=== PATIENT | female | born 1975 | race African-American/Black ===

== ENCOUNTER 2018-01-21 14:01 | Outpatient (CLI) | payer MEDICARE | END 2018-01-21 14:02 | disposition home or self-care (01) | LOC: BICMAMMO 14:01 | PROVIDERS: ATTEND Family Medicine | DX: Z12.31 Encounter for screening mammogram for malignant neoplasm of breast (principal); R92.1 Mammographic calcification found on diagnostic imaging of breast | CPT/HCPCS: 77063; 77067 ==

== ENCOUNTER 2018-01-21 14:42 | Emergency (ER) | payer MEDICARE | END 2018-01-21 15:40 | disposition home or self-care (01) | LOC: ERS 14:42 | DX: H66.92 Otitis media, unspecified, left ear (principal); K21.9 Gastro-esophageal reflux disease without esophagitis; G89.29 Other chronic pain; C90.00 Multiple myeloma not having achieved remission | CPT/HCPCS: 99282 ==

== ENCOUNTER 2018-01-27 13:16 | Outpatient (CLI) | payer MEDICARE ==
--- NOTE | 2018-01-27 15:08 | MRI ---
MRI CERVICAL SPINE: INDICATIONS: Neck pain. TECHNIQUE: Multiplanar, multisequential imaging of the cervical spine obtained. FINDINGS: The cervical vertebrae maintain normal height and alignment. Disk spaces are preserved. Very mild degenerative osteophytes from the cervical vertebrae. Mild disk bulge at C2-C3 flattens the thecal sac. The anterior subarachnoid space is preserved. The foramina are patent. At C3-C4, minimal disk bulge and spondylosis flatten the thecal sac. The anterior subarachnoid space is preserved. The foramina are patent. At C4-C5, there is minimal spondylosis. The anterior subarachnoid space is preserved, and the forami na are patent. At C5-C6, minimal spondylosis. No foraminal encroachment. At C6-C7, no significant disk bulge or spondylosis. Cervical cord signal is normal. IMPRESSION: 1. There is no evidence of significant disk bulge or spondylosis at the cervical levels. No foramin al encroachment or cervical canal stenosis identified. 2. Incidentally noted is a cystic signal lesion in the clivus, measuring approximately 1.2 cm. This is well circumscribed and has a benign appearance. POS: [facility]
== END 2018-01-27 13:17 | disposition home or self-care (01) ==
LOC: SCSMRI 13:16
PROVIDERS: ATTEND Family Medicine
DX: S13.4XXD Sprain of ligaments of cervical spine, subsequent encounter (principal)
CPT/HCPCS: 72141

== ENCOUNTER 2018-04-29 14:43 | Emergency (ER) | payer MEDICARE ==
[2018-04-29] MEDS ORDERED: Acetaminophen 500 MG TAB ONE (15:24)
--- NOTE | 2018-04-29 15:45 | RAD ---
CHEST PA AND LATERAL 2 VIEWS: Date: 04/29/18 HISTORY: 43-year-old female with history of cough. FINDINGS: Stable mild thoracic vertebral body vertical height loss, as well as status post vertebroplasty murillo e in one of the more inferior thoracic spine vertebra. No confluent pneumonia, overt edema, or pleura l effusion. IMPRESSION: No acute intrathoracic disease. No evidence for pneumonia, Stable from prior study. POS: [facility]
== END 2018-04-29 15:47 | disposition home or self-care (01) ==
LOC: ERS 14:43
DX: J06.9 Acute upper respiratory infection, unspecified (principal); K21.9 Gastro-esophageal reflux disease without esophagitis; C90.00 Multiple myeloma not having achieved remission; E66.9 Obesity, unspecified
CPT/HCPCS: 71046; 80307; 87804; G0483

== ENCOUNTER 2019-07-05 16:06 | Outpatient (CLI) | payer MEDICARE | END 2019-07-05 16:07 | disposition home or self-care (01) | LOC: CTENTCT 16:06 | PROVIDERS: ATTEND Otolaryngology Plastic Surgery within the Head & Neck | DX: J01.91 Acute recurrent sinusitis, unspecified (principal) | CPT/HCPCS: 70486 ==

== ENCOUNTER 2019-07-21 16:11 | Outpatient (CLI) | payer MEDICARE ==
--- NOTE | 2019-07-21 16:43 | RAD ---
EXAM: XR Lumbar Spine 2 Or 3 View PROVIDED CLINICAL HISTORY: Low back pain. History of multiple myeloma. COMPARISON: 12/14/2017 FINDINGS: Multilevel vertebroplasty changes are seen involving the lower thoracic as well as lumbar spine also noted on prior exam. The vertebral body heights of the lumbar spine are within normal limits. Mild narrowing L5-S1 intervertebral disc space is again seen. Facet degenerative changes are seen in the l ower lumbar spine. No fracture or subluxation is appreciated. Views lumbar spine are stable compared to prior study. IMPRESSION: 1. Degenerative changes lumbar spine without acute osseous abnormality seen. 2. Multilevel vertebroplasty changes involving lower thoracic and lumbar spine.
--- NOTE | 2019-07-21 16:45 | RAD ---
EXAM: XR Pelvis AP STANDARD PROVIDED CLINICAL HISTORY: Pelvic pain radiating to lower extremities. COMPARISON: None FINDINGS: Vertebroplasty changes are noted involving the lower lumbar spine. No fracture is seen involving the pelvis. There is no dislocation appreciated. Phleboliths overlie the left hemipelvis. IMPRESSION: No acute osseous abnormality.
== END 2019-07-21 16:12 | disposition home or self-care (01) ==
LOC: BICRAD 16:11
PROVIDERS: ATTEND Internal Medicine Medical Oncology
DX: M54.5 Low back pain (principal); R10.2 Pelvic and perineal pain; M47.816 Spondylosis without myelopathy or radiculopathy, lumbar region; Z98.890 Other specified postprocedural states
CPT/HCPCS: 72100; 72170; 80053; 82248; 83615; 83883; 84100; 84165; 84550

== ENCOUNTER 2020-08-06 14:04 | Outpatient (CLI) | payer MEDICARE | END 2020-08-06 14:05 | disposition home or self-care (01) | LOC: BICMAMMO 14:04 | PROVIDERS: ATTEND Family Medicine | DX: Z12.31 Encounter for screening mammogram for malignant neoplasm of breast (principal); Z85.820 Personal history of malignant melanoma of skin | CPT/HCPCS: 77063; 77067 ==

== ENCOUNTER 2020-10-09 15:43 | Outpatient (CLI) | payer MEDICARE | END 2020-10-09 15:44 | disposition home or self-care (01) | LOC: BICCT 15:43 | PROVIDERS: ATTEND Internal Medicine Medical Oncology | DX: M54.5 Low back pain (principal); C90.00 Multiple myeloma not having achieved remission; M47.816 Spondylosis without myelopathy or radiculopathy, lumbar region; Z98.890 Other specified postprocedural states | CPT/HCPCS: 72131; 72192 ==

== ENCOUNTER 2020-10-23 08:58 | Outpatient (CLI) | payer MEDICARE | END 2020-10-23 08:59 | disposition home or self-care (01) | LOC: PET 08:58 | PROVIDERS: ATTEND Internal Medicine Medical Oncology | DX: C90.00 Multiple myeloma not having achieved remission (principal) | CPT/HCPCS: 78815; A9552 ==

== ENCOUNTER 2020-11-12 15:28 | Inpatient (IN) | payer MEDICARE ==
[2020-11-12 15:37] VITALS: BMI 42.1
[2020-11-12] MEDS ORDERED: tiZANidine HCl 4 MG TAB PO PRN (18:12)
[2020-11-12] MEDS: HYDROcodone/Acetaminophen 10/325 mg Tablet PO PRN (18:27)
[2020-11-12] MEDS ORDERED: Amlodipine 5 MG TAB PO SCH (19:30)
[2020-11-12] MEDS ORDERED: Acetaminophen 325 MG TAB PO PRN (20:03)
[2020-11-12] MEDS: Gabapentin 300 MG CAP PO SCH (20:06)
[2020-11-12] MEDS: Benzonatate 100 MG CAP PO PRN (20:07)
[2020-11-12] MEDS ORDERED: Ondansetron PF 4 MG/2 ML Vial IVP PRN (21:32)
[2020-11-12] MEDS ORDERED: cefTRIAXone\\ROCEPHIN 2 GM in Sodium Chloride 0.9% 100 ML IVPB SCH (22:00)
[2020-11-12] MEDS: Sodium Chloride 0.9% 1,000 ML IV SCH (22:02)
[2020-11-13] MEDS: Benzonatate 100 MG CAP PO PRN (04:47)
[2020-11-13] MEDS: HYDROcodone/Acetaminophen 10/325 mg Tablet PO PRN (06:42)
[2020-11-13 06:46] LABS: Hemoglobin 10.8 g/dL (12.0-16.0); Mean Corpuscular HGB CONC 32.1 g/dL (32.0-36.0); Mean Corpuscular Hemoglobin 30.9 pg (27.0-31.0); Mean Corpuscular Volume 96.3 fL (78.0-98.0); Mean Platelet Volume 10.1 fL (7.4-10.4); Platelet Count 122 thou/uL (130-400); RBC Distribution Width 14.9 % (11.5-14.5); Red Blood Cell (RBC) Count 3.48 mill/uL (4.20-5.40); White Blood Cell (WBC) Count 2.2 thou/uL (4.8-10.8)
[2020-11-13 06:54] LABS: Anion Gap 11 mmol/L (10-20); BUN (Urea Nitrogen) 16 mg/dL (7.0-18.7); Calc. Creatinine Clearance 99 mL/min (70-130); Calcium 9.3 mg/dL (7.8-10.44); Carbon Dioxide 26 mmol/L (22-29); Chloride 106 mmol/L (98-107); Glucose 202 mg/dL (70-105); Potassium 4.7 mmol/L (3.5-5.1); Sodium 138 mmol/L (136-145)
[2020-11-13] MEDS: Gabapentin 300 MG CAP PO SCH (08:21)
[2020-11-13] MEDS ORDERED: Non-Formulary Item 1 EACH (Magnesium Oxide [Magnesium] 500 MG Capsule) PO SCH (09:00)
[2020-11-13] MEDS ORDERED: Loratadine 10 MG TAB PO SCH (09:00)
[2020-11-13] MEDS ORDERED: Enoxaparin Sodium 40 MG/0.4 ML SYRINGE SC SCH (09:00)
[2020-11-13] MEDS ORDERED: Aspirin 325 mg Enteric Coated Tablet PO SCH (09:00)
[2020-11-13] MEDS ORDERED: Amlodipine 5 MG TAB PO SCH (09:00)
[2020-11-13] MEDS ORDERED: Dexamethasone 4 mg/ml Vial SLOW IVP SCH (09:00)
[2020-11-13 10:07] LABS: Band 13 % (5-11); Lymphocytes 22 % (21-51); MDiff Complete? YES; Monocytes 9 % (0-10); Neutrophil 56 % (42-75); Platelet Morphology Comment Appears Decreased; Poikilocytosis SLIGHT = 6-15 cells (100X) (0-5/hpf); Tear Drops SLIGHT = 2-5 cells (100X) (0-1/hpf)
[2020-11-13] MEDS: Sodium Chloride 0.9% 1,000 ML IV SCH (11:00)
[2020-11-13 11:18] VITALS: TEMP 98.3
[2020-11-13 14:56] VITALS: BP 126/81
== END 2020-11-13 15:11 | disposition home or self-care (01) | DRG 871 ==
LOC: T4-B 15:28
PROVIDERS: ADMIT Internal Medicine; ATTEND Internal Medicine
DX: A41.9 Sepsis, unspecified organism (principal); J18.9 Pneumonia, unspecified organism; C90.01 Multiple myeloma in remission; N17.9 Acute kidney failure, unspecified; Z20.822 Contact with and (suspected) exposure to COVID-19; D50.9 Iron deficiency anemia, unspecified; G89.29 Other chronic pain; M54.9 Dorsalgia, unspecified; M54.2 Cervicalgia; K21.9 Gastro-esophageal reflux disease without esophagitis; I10 Essential (primary) hypertension; Z79.899 Other long term (current) drug therapy; Z79.82 Long term (current) use of aspirin; Z79.4 Long term (current) use of insulin; Z79.52 Long term (current) use of systemic steroids; Z80.0 Family history of malignant neoplasm of digestive organs
CPT/HCPCS: 36415; 80048; 85025; 87070; 87205; J0696; J1100; J1650; J1956; J3490

== ENCOUNTER 2021-03-14 21:46 | Inpatient (IN) | payer MEDICARE ==
[2021-03-14 23:32] VITALS: BMI 40.3
[2021-03-15] MEDS ORDERED: Ketorolac Tromethamine 30 MG/ML VIAL IVP SCH (02:00)
[2021-03-15] MEDS ORDERED: Morphine 4 MG/ML VIAL SLOW IVP SCH (02:00)
[2021-03-15] MEDS ORDERED: Labetalol HCl 100 MG/20 ML VIAL SLOW IVP PRN (04:45)
[2021-03-15] MEDS ORDERED: Ondansetron PF 4 MG/2 ML Vial IVP PRN (04:52)
[2021-03-15] MEDS ORDERED: Ondansetron ODT 4 MG TAB PO PRN (04:52)
[2021-03-15] MEDS ORDERED: Acetaminophen 650 MG Suppository PR PRN (04:52)
[2021-03-15] MEDS ORDERED: Acetaminophen 325 MG TAB PO PRN (04:52)
[2021-03-15] MEDS: Sodium Chloride 0.9% 1,000 ML IV SCH ×2 (05:30→16:16)
[2021-03-15] MEDS: Vancomycin HCl 1.5 GM in Sodium Chloride 0.9% 250 ML 300 ML IVPB SCH ×2 (05:30→20:45)
[2021-03-15] MEDS ORDERED: Vancomycin 1.5 GRAM/300 ML BAG 1.5 GM in Premix Bag 1 BAG IVPB SCH (06:00)
[2021-03-15 06:04] LABS: Lactic Acid 1.1 mmol/L (0.5-2.2)
[2021-03-15 06:09] LABS: Band 29 % (5-11); Hemoglobin 10.3 g/dL (12.0-16.0); Lymphocytes 8 % (21-51); MDiff Complete? YES; Mean Corpuscular Hemoglobin 31.2 pg (27.0-31.0); Mean Corpuscular Volume 94.5 fL (78.0-98.0); Mean Platelet Volume 8.6 fL (7.4-10.4); Metamyelocyte 15 % (0-0); Monocytes 11 % (0-10); Myelocyte 16 % (0-0); Neutrophil 20 % (42-75); Platelet Count 384 thou/uL (130-400); Platelet Morphology Comment Appears Adequate; Polychromasia SLIGHT = 2-3 cells (100X) (0-2/hpf); Reactive Lymphocytes 1 % (0-10); Red Blood Cell (RBC) Count 3.29 mill/uL (4.20-5.40); Tear Drops SLIGHT = 2-5 cells (100X) (0-1/hpf); White Blood Cell (WBC) Count 5.7 thou/uL (4.8-10.8)
[2021-03-15] MEDS: Morphine 4 MG/ML VIAL SLOW IVP PRN ×2 (07:41→20:46)
[2021-03-15] MEDS: cefTRIAXone\\ROCEPHIN 2 GM in Sodium Chloride 0.9% 100 ML IVPB SCH (08:12)
[2021-03-15] MEDS: Enoxaparin Sodium 40 MG/0.4 ML SYRINGE SC SCH (08:13)
[2021-03-15 08:45] LABS: Hemoglobin A1c 12.1 % (4.0-6.0)
[2021-03-15] MEDS ORDERED: Fentanyl 100 MCG/2 ML VIAL ONE (10:06)
[2021-03-15] MEDS ORDERED: Glycopyrrolate 0.2 MG/ML 5 ML SYRINGE ONE (10:21)
[2021-03-15] MEDS ORDERED: Rocuronium Bromide 10 MG/ML (10ML VIAL) ONE (10:21)
[2021-03-15] MEDS ORDERED: PROPOFOL 200 MG/20 ML VIAL ONE (10:21)
[2021-03-15] MEDS ORDERED: Dexamethasone 20 MG/5 ML VIAL ONE (10:21)
[2021-03-15] MEDS ORDERED: Ondansetron PF 4 MG/2 ML Vial ONE (10:21)
[2021-03-15] MEDS ORDERED: Lidocaine 1% PF 5 ML VIAL ONE (10:21)
[2021-03-15] MEDS ORDERED: HYDROcodone/Acetaminophen 10/325 mg Tablet PO PRN (10:44)
[2021-03-15] MEDS ORDERED: Fentanyl 100 MCG/2 ML VIAL SLOW IVP PRN (10:45)
[2021-03-15] MEDS ORDERED: Labetalol HCl 100 MG/20 ML VIAL ONE (11:31)
[2021-03-15] MEDS ORDERED: Dextrose 5% in Water 1,000 ML IV PRN (23:02)
[2021-03-15] MEDS ORDERED: Dextrose 50% Abboject 50 ML SYRINGE SLOW IVP PRN (23:02)
[2021-03-16] MEDS: Insulin Regular 300 UNITS/3 ML VIAL SC PRN (00:09)
[2021-03-16] MEDS: HYDROcodone/Acetaminophen 10/325 mg Tablet PO PRN ×6 (00:14→21:36)
[2021-03-16] MEDS: Sodium Chloride 0.9% 1,000 ML IV SCH ×3 (01:14→21:44)
[2021-03-16] MEDS: Vancomycin HCl 1.5 GM in Sodium Chloride 0.9% 250 ML 300 ML IVPB SCH ×2 (05:11→19:36)
[2021-03-16] MEDS: HumaLOG 300 UNITS/3 ML VIAL SC PRN ×4 (06:34→21:36)
[2021-03-16 06:44] LABS: Hemoglobin A1c 10.8 % (4.0-6.0)
[2021-03-16 06:55] LABS: Band 8 % (5-11); Eosinophils 1 % (0-10); Hemoglobin 8.7 g/dL (12.0-16.0); Hypochromia SLIGHT = 6-15 cells (100X) (0-5/hpf); Lymphocytes 28 % (21-51); MDiff Complete? YES; Mean Corpuscular HGB CONC 29.8 g/dL (32.0-36.0); Mean Corpuscular Hemoglobin 28.7 pg (27.0-31.0); Mean Corpuscular Volume 96.5 fL (78.0-98.0); Mean Platelet Volume 9.1 fL (7.4-10.4); Monocytes 10 % (0-10); Neutrophil 52 % (42-75); Platelet Count 353 thou/uL (130-400); Platelet Morphology Comment Appears Adequate; Reactive Lymphocytes 1 % (0-10); Red Blood Cell (RBC) Count 3.02 mill/uL (4.20-5.40); White Blood Cell (WBC) Count 5.7 thou/uL (4.8-10.8)
[2021-03-16 07:04] LABS: Anion Gap 14 mmol/L (10-20); BUN (Urea Nitrogen) 23 mg/dL (7.0-18.7); Calc. Creatinine Clearance 113 mL/min (70-130); Calcium 8.9 mg/dL (7.8-10.44); Carbon Dioxide 23 mmol/L (22-29); Chloride 101 mmol/L (98-107); Glucose 262 mg/dL (70-105); Potassium 4.6 mmol/L (3.5-5.1); Sodium 133 mmol/L (136-145)
[2021-03-16 07:05] LABS: Cardiac Risk 4.1 (Less than 4.5)
[2021-03-16] MEDS: cefTRIAXone\\ROCEPHIN 2 GM in Sodium Chloride 0.9% 100 ML IVPB SCH (10:04)
[2021-03-16] MEDS: Enoxaparin Sodium 40 MG/0.4 ML SYRINGE SC SCH (10:05)
[2021-03-16] MEDS ORDERED: Fluconazole 100 MG TAB PO SCH (13:30)
[2021-03-16] MEDS: Ketorolac Tromethamine 30 MG/ML VIAL IVP PRN (21:48)
[2021-03-16] MEDS ORDERED: Calcium Carbonate 500 MG ChewTAB PO PRN (21:53)
[2021-03-16] MEDS: Docusate 100 MG CAP PO PRN (22:11)
[2021-03-17] MEDS: HYDROcodone/Acetaminophen 10/325 mg Tablet PO PRN ×5 (03:08→23:43)
[2021-03-17] MEDS: Vancomycin HCl 1.5 GM in Sodium Chloride 0.9% 250 ML 300 ML IVPB SCH ×2 (05:46→17:40)
[2021-03-17] MEDS: Ketorolac Tromethamine 30 MG/ML VIAL IVP PRN ×2 (05:49→17:40)
[2021-03-17] MEDS: HumaLOG 300 UNITS/3 ML VIAL SC PRN ×3 (05:50→17:53)
[2021-03-17] MEDS ORDERED: Prevnar 13-Val Conj/PF 0.5 ML SYRINGE IM ONE (09:00)
[2021-03-17] MEDS: Enoxaparin Sodium 40 MG/0.4 ML SYRINGE SC SCH (09:19)
[2021-03-17] MEDS: cefTRIAXone\\ROCEPHIN 2 GM in Sodium Chloride 0.9% 100 ML IVPB SCH (09:19)
[2021-03-17] MEDS: Sodium Chloride 0.9% 1,000 ML IV SCH ×2 (09:20→17:40)
[2021-03-17 10:55] LABS: Mean Corpuscular HGB CONC 31.1 g/dL (32.0-36.0); Mean Corpuscular Volume 96.4 fL (78.0-98.0); Mean Platelet Volume 9.4 fL (7.4-10.4); Platelet Count 311 thou/uL (130-400); Red Blood Cell (RBC) Count 2.66 mill/uL (4.20-5.40)
[2021-03-17 11:14] LABS: Anion Gap 13 mmol/L (10-20); BUN (Urea Nitrogen) 24 mg/dL (7.0-18.7); Calc. Creatinine Clearance 117 mL/min (70-130); Calcium 8.7 mg/dL (7.8-10.44); Carbon Dioxide 23 mmol/L (22-29); Chloride 102 mmol/L (98-107); Glucose 227 mg/dL (70-105); Potassium 4.4 mmol/L (3.5-5.1); Sodium 134 mmol/L (136-145)
[2021-03-17 11:26] LABS: Anisocytosis SLIGHT = 6-15 cells (100X) (0-5/hpf); Band 6 % (5-11); Eosinophils 11 % (0-10); Lymphocytes 22 % (21-51); MDiff Complete? YES; Monocytes 9 % (0-10); Neutrophil 51 % (42-75); Platelet Morphology Comment Appears Adequate
[2021-03-18] MEDS: HYDROcodone/Acetaminophen 10/325 mg Tablet PO PRN ×3 (02:59→21:16)
[2021-03-18 06:17] LABS: #Eosinphils 0.2 thou/uL (0.0-0.7); #Lymphocytes 0.8 thou/uL (1.20-3.40); #Monocytes 0.4 thou/uL (0.11-0.59); #Neutrophils 3.9 thou/uL (1.40-6.50); %Basophils 0.4 % (0.0-1.0); %Eosinophils 3.4 % (0.0-10.0); %Lymphocytes 15.9 % (21.0-51.0); %Monocytes 6.6 % (0.0-10.0); %Neutrophils 73.7 % (42.0-75.0); Hemoglobin 7.9 g/dL (12.0-16.0); Mean Corpuscular HGB CONC 31.6 g/dL (32.0-36.0); Mean Corpuscular Hemoglobin 30.3 pg (27.0-31.0); Mean Corpuscular Volume 95.9 fL (78.0-98.0); Mean Platelet Volume 9.1 fL (7.4-10.4); Platelet Count 278 thou/uL (130-400); RBC Distribution Width 15.1 % (11.5-14.5); Red Blood Cell (RBC) Count 2.61 mill/uL (4.20-5.40); White Blood Cell (WBC) Count 5.3 thou/uL (4.8-10.8)
[2021-03-18] MEDS: HumaLOG 300 UNITS/3 ML VIAL SC PRN ×2 (06:24→14:07)
[2021-03-18] MEDS: Vancomycin HCl 1.5 GM in Sodium Chloride 0.9% 250 ML 300 ML IVPB SCH (06:24)
[2021-03-18] MEDS: Sodium Chloride 0.9% 1,000 ML IV SCH ×3 (06:25→23:33)
[2021-03-18 06:41] LABS: Anion Gap 12 mmol/L (10-20); BUN (Urea Nitrogen) 18 mg/dL (7.0-18.7); Calc. Creatinine Clearance 134 mL/min (70-130); Calcium 8.5 mg/dL (7.8-10.44); Carbon Dioxide 21 mmol/L (22-29); Chloride 103 mmol/L (98-107); Glucose 194 mg/dL (70-105); Potassium 4.4 mmol/L (3.5-5.1); Sodium 132 mmol/L (136-145)
[2021-03-18] MEDS: cefTRIAXone\\ROCEPHIN 2 GM in Sodium Chloride 0.9% 100 ML IVPB SCH (09:57)
[2021-03-18] MEDS: Enoxaparin Sodium 40 MG/0.4 ML SYRINGE SC SCH (09:57)
[2021-03-18] MEDS: Insulin Regular 300 UNITS/3 ML VIAL SC PRN (21:21)
[2021-03-19] MEDS: HYDROcodone/Acetaminophen 10/325 mg Tablet PO PRN ×4 (02:58→15:28)
[2021-03-19] MEDS: HumaLOG 300 UNITS/3 ML VIAL SC PRN (05:55)
[2021-03-19 09:31] LABS: Hemoglobin 8.9 g/dL (12.0-16.0); Mean Corpuscular HGB CONC 32.1 g/dL (32.0-36.0); Mean Corpuscular Hemoglobin 30.6 pg (27.0-31.0); Mean Corpuscular Volume 95.3 fL (78.0-98.0); Mean Platelet Volume 9.1 fL (7.4-10.4); Platelet Count 299 thou/uL (130-400); RBC Distribution Width 15.2 % (11.5-14.5); White Blood Cell (WBC) Count 5.9 thou/uL (4.8-10.8)
[2021-03-19 09:42] LABS: Anion Gap 14 mmol/L (10-20); Calcium 9.1 mg/dL (7.8-10.44); Carbon Dioxide 24 mmol/L (22-29); Chloride 101 mmol/L (98-107); Potassium 4.1 mmol/L (3.5-5.1); Sodium 135 mmol/L (136-145)
[2021-03-19 10:02] LABS: BUN (Urea Nitrogen) 13 mg/dL (7.0-18.7); Calc. Creatinine Clearance 132 mL/min (70-130); Glucose 235 mg/dL (70-105)
[2021-03-19] MEDS: Enoxaparin Sodium 40 MG/0.4 ML SYRINGE SC SCH (10:05)
[2021-03-19] MEDS: Docusate 100 MG CAP PO PRN (10:08)
[2021-03-19 11:51] LABS: Band 25 % (5-11); Eosinophils 1 % (0-10); Lymphocytes 15 % (21-51); MDiff Complete? YES; Monocytes 11 % (0-10); Neutrophil 48 % (42-75); Platelet Morphology Comment Appears Adequate; Polychromasia SLIGHT = 2-3 cells (100X) (0-2/hpf)
[2021-03-19] MEDS: Sodium Chloride 0.9% 1,000 ML IV SCH (12:14)
[2021-03-19 16:25] VITALS: BP 134/77; TEMP 99
== END 2021-03-19 17:13 | disposition home or self-care (01) | DRG 507 ==
LOC: 3SE 21:46 → SURG A 03-15 10:52 → 3SE 03-15 10:53 → SURG B 03-15 19:59 → T4-A 03-19 07:29 → SURG B 03-19 07:33
PROVIDERS: ADMIT Student in an Organized Health Care Education/Training Program; ATTEND Internal Medicine
PROC: 0R9K0ZZ Drainage of Left Shoulder Joint, Open Approach (ICD-10-PCS; principal; 2021-03-15)
DX: M00.212 Other streptococcal arthritis, left shoulder (principal); Z68.41 Body mass index [BMI] 40.0-44.9, adult; R78.81 Bacteremia; C90.01 Multiple myeloma in remission; Z20.822 Contact with and (suspected) exposure to COVID-19; B37.3 Candidiasis of vulva and vagina; K21.9 Gastro-esophageal reflux disease without esophagitis; G89.29 Other chronic pain; M54.9 Dorsalgia, unspecified; E66.9 Obesity, unspecified; N18.9 Chronic kidney disease, unspecified; M18.30 Unilateral post-traumatic osteoarthritis of first carpometacarpal joint, unspecified hand; I12.9 Hypertensive chronic kidney disease with stage 1 through stage 4 chronic kidney disease, or unspecified chronic kidney disease; E11.22 Type 2 diabetes mellitus with diabetic chronic kidney disease; E11.65 Type 2 diabetes mellitus with hyperglycemia; E78.5 Hyperlipidemia, unspecified; B95.4 Other streptococcus as the cause of diseases classified elsewhere; Z79.899 Other long term (current) drug therapy; Z79.82 Long term (current) use of aspirin; Z80.0 Family history of malignant neoplasm of digestive organs; Z79.52 Long term (current) use of systemic steroids
CPT/HCPCS: 36415; 36416; 71045; 80048; 80061; 83036; 83605; 85025; 87070; 87205; J0696; J1100; J1650; J1815; J1885; J2270; J2405; J2704; J3010; J3370; J3490; J7050

== ENCOUNTER 2021-04-11 15:30 | Observation (INO) | payer MEDICARE ==
[2021-04-11 16:42] LABS: SARS-CoV-2 NAA Rapid Test Not Detected (NotDetected)
[2021-04-11 17:45] LABS: Hemoglobin 8.4 g/dL (12.0-16.0); Mean Corpuscular HGB CONC 31.7 g/dL (32.0-36.0); Mean Corpuscular Hemoglobin 29.2 pg (27.0-31.0); Mean Platelet Volume 7.4 fL (7.4-10.4); Platelet Count 373 thou/uL (130-400); RBC Distribution Width 15.6 % (11.5-14.5); Red Blood Cell (RBC) Count 2.87 mill/uL (4.20-5.40); White Blood Cell (WBC) Count 2.9 thou/uL (4.8-10.8)
[2021-04-11 18:04] LABS: Eosinophils 6 % (0-10); Lymphocytes 48 % (21-51); MDiff Complete? YES; Monocytes 22 % (0-10); Neutrophil 18 % (42-75); Platelet Morphology Comment Appears Adequate; RBC Morphology Normal; Reactive Lymphocytes 5 % (0-10)
[2021-04-11 18:16] LABS: ALT (SGPT) 7 U/L (8-55); AST (SGOT) 11 U/L (5-34); Albumin 3.4 g/dL (3.5-5.0); Alkaline Phosphatase 71 U/L (40-110); Anion Gap 13 mmol/L (10-20); BUN (Urea Nitrogen) 21 mg/dL (7.0-18.7); Bilirubin, Total 0.4 mg/dL (0.2-1.2); Calc. Creatinine Clearance 0 mL/min (70-130); Calcium 10.1 mg/dL (7.8-10.44); Carbon Dioxide 25 mmol/L (22-29); Chloride 104 mmol/L (98-107); Globulin 2.6 g/dL (2.4-3.5); Glucose 113 mg/dL (70-105); Potassium 3.5 mmol/L (3.5-5.1); Sodium 138 mmol/L (136-145)
[2021-04-11] MEDS ORDERED: traMADol HCl 50 MG TAB PO PRN (19:09)
[2021-04-11] MEDS ORDERED: Fentanyl 100 MCG/2 ML VIAL SLOW IVP PRN (19:09)
[2021-04-11] MEDS ORDERED: Acetaminophen 325 MG TAB PO PRN (19:09)
[2021-04-11] MEDS ORDERED: HYDROcodone/Acetaminophen 5/325 mg Tablet PO PRN (19:09)
[2021-04-11] MEDS ORDERED: Communication Order-Pharmacy FS SCH (19:15)
[2021-04-11] MEDS ORDERED: TETANUS AND DIPHTHERIA TOX/PF 0.5 ML DISP.SYRIN IM SCH (19:15)
[2021-04-11] MEDS: Aspirin 81 mg Enteric Coated Tablet PO SCH (20:34)
[2021-04-11 21:07] VITALS: BMI 38.9
[2021-04-11] MEDS ORDERED: Dextrose 5% in Water 1,000 ML IV PRN (21:55)
[2021-04-11] MEDS ORDERED: Dextrose 50% Abboject 50 ML SYRINGE SLOW IVP PRN (21:55)
[2021-04-11] MEDS ORDERED: HumaLOG 300 UNITS/3 ML VIAL SC PRN ×2 (21:55)
[2021-04-11] MEDS ORDERED: HYDROcodone/Acetaminophen 10/325 mg Tablet PO PRN (22:21)
[2021-04-11] MEDS ORDERED: VANCOMYCIN 1.25 GM/250 ML BAG 1.25 GM in Premix Bag 1 BAG IVPB SCH (22:22)
[2021-04-11] MEDS ORDERED: Cefepime 2 GM in Sodium Chloride 0.9% 100 ML IVPB SCH (23:00)
[2021-04-11] MEDS ORDERED: Vancomycin HCl 1.25 GM in Sodium Chloride 0.9% 250 ML 250 ML IVPB SCH (23:59)
[2021-04-12] MEDS ORDERED: Piperacillin/Tazobactam 3.375 GM in Sodium Chloride 0.9% 100 ML IVPB SCH ×2 (06:00→10:00)
[2021-04-12] MEDS ORDERED: Neomycin-Polymyxin 1 ML AMP ONE (06:26)
[2021-04-12] MEDS ORDERED: Bacitracin Zinc Ointment 30 gm TUBE ONE (06:26)
[2021-04-12] MEDS ORDERED: Bupivacaine PF 0.5% 30 ML VIAL ONE (06:26)
[2021-04-12] MEDS ORDERED: Fentanyl 100 MCG/2 ML VIAL ONE (07:00)
[2021-04-12] MEDS ORDERED: PROPOFOL 200 MG/20 ML VIAL ONE (07:24)
[2021-04-12] MEDS ORDERED: Ondansetron PF 4 MG/2 ML Vial ONE (07:24)
[2021-04-12] MEDS ORDERED: PHENYLEPHRINE-NS 100 MCG/ML 10 ML SYRINGE ONE (07:24)
[2021-04-12] MEDS ORDERED: Lidocaine 1% PF 5 ML VIAL ONE (07:24)
[2021-04-12] MEDS ORDERED: Ketorolac Tromethamine 30 MG/ML VIAL ONE (07:24)
[2021-04-12] MEDS ORDERED: metFORMIN 500 MG TAB PO SCH (07:30)
[2021-04-12] MEDS ORDERED: PACU-Morphine 4MG/ML VIAL SLOW IVP PRN (08:04)
[2021-04-12] MEDS ORDERED: HYDROmorphone 2 MG/ML VIAL SLOW IVP PRN (08:04)
[2021-04-12] MEDS ORDERED: Ondansetron HCl/PF 4 MG/2 ML Vial IVP PRN (08:04)
[2021-04-12] MEDS ORDERED: Promethazine HCl 25 MG/ML VIAL IM PRN (08:04)
[2021-04-12] MEDS ORDERED: Promethazine HCl 25 MG/ML VIAL IVPB PRN (08:04)
[2021-04-12] MEDS ORDERED: Fluconazole 100 MG TAB PO SCH (09:00)
[2021-04-12] MEDS ORDERED: Amlodipine 10 MG TAB PO SCH (09:00)
[2021-04-12] MEDS ORDERED: Sulfameth/Trimethoprim DS 800-160mg TAB PO SCH (09:00)
[2021-04-12] MEDS: Aspirin 81 mg Enteric Coated Tablet PO SCH (09:14)
[2021-04-12 09:16] VITALS: BP 132/85
[2021-04-12 10:25] VITALS: TEMP 97.5
== END 2021-04-12 13:00 | disposition home or self-care (01) ==
LOC: SDC 15:30 → SURG A 19:09
PROVIDERS: ADMIT Orthopaedic Surgery Hand Surgery; ATTEND Orthopaedic Surgery Hand Surgery
PROC: 0H9QXZZ Drainage of Finger Nail, External Approach (ICD-10-PCS; principal; 2021-04-12)
DX: E11.628 Type 2 diabetes mellitus with other skin complications (principal); L02.511 Cutaneous abscess of right hand; E11.52 Type 2 diabetes mellitus with diabetic peripheral angiopathy with gangrene; I96 Gangrene, not elsewhere classified; K21.9 Gastro-esophageal reflux disease without esophagitis; G89.29 Other chronic pain; M54.9 Dorsalgia, unspecified; I10 Essential (primary) hypertension; M00.9 Pyogenic arthritis, unspecified; E66.9 Obesity, unspecified; Z68.39 Body mass index [BMI] 39.0-39.9, adult; Z20.822 Contact with and (suspected) exposure to COVID-19; Z79.84 Long term (current) use of oral hypoglycemic drugs; Z79.899 Other long term (current) drug therapy; Z98.890 Other specified postprocedural states; Z85.79 Personal history of other malignant neoplasms of lymphoid, hematopoietic and related tissues
CPT/HCPCS: 10060; 73120; 80053; 82962; 83605; 85025; 87040; 87070; 87075; 87102; 87116; 87186; 87205; 87206 ×2; U0002; 36415; 36416; 96365; 96366; 96375; G0378; J0692; J1885; J2405; J2543; J2704; J3010; J3370; J3490; J7050; S0020

== ENCOUNTER 2021-05-14 10:29 | Outpatient (CLI) | payer MEDICARE | END 2021-05-14 10:30 | disposition home or self-care (01) | LOC: MRI 10:29 | PROVIDERS: ATTEND Orthopaedic Surgery | DX: M25.412 Effusion, left shoulder (principal); M75.122 Complete rotator cuff tear or rupture of left shoulder, not specified as traumatic ==

== ENCOUNTER 2021-07-03 09:15 | Emergency (ER) | payer MEDICARE ==
[2021-07-03] MEDS ORDERED: Benzocaine 20% Spray 60 ML CAN ONE (11:33)
== END 2021-07-03 11:43 | disposition home or self-care (01) ==
LOC: ERS 09:15
DX: L03.011 Cellulitis of right finger (principal); L02.511 Cutaneous abscess of right hand; K21.9 Gastro-esophageal reflux disease without esophagitis; D50.9 Iron deficiency anemia, unspecified; E66.9 Obesity, unspecified
CPT/HCPCS: 10060

== ENCOUNTER 2021-07-25 11:15 | Outpatient (CLI) | payer MEDICARE | END 2021-07-25 11:16 | disposition home or self-care (01) | LOC: BICRAD 11:15 | PROVIDERS: ATTEND Family Medicine | DX: C90.01 Multiple myeloma in remission (principal); J45.50 Severe persistent asthma, uncomplicated; R05.9 Cough, unspecified | CPT/HCPCS: 71046 ==

== ENCOUNTER 2022-01-01 11:47 | Outpatient (CLI) | payer OTHER ==
[2022-01-01] MEDS ORDERED: Magnevist 469MG/ML 20 ML VIAL ONE (14:28)
== END 2022-01-01 11:48 | disposition home or self-care (01) ==
LOC: MRI 11:47
PROVIDERS: ATTEND Thoracic Surgery (Cardiothoracic Vascular Surgery)
DX: C79.51 Secondary malignant neoplasm of bone (principal); C90.00 Multiple myeloma not having achieved remission
CPT/HCPCS: 72197; A9579

== ENCOUNTER 2022-04-20 08:32 | Emergency (ER) | payer OTHER ==
[2022-04-20] MEDS ORDERED: Iopamidol-370 76% 500 ML 1 ML ONE (08:57)
[2022-04-20 09:42] LABS: #Eosinphils 0.2 thou/uL (0.0-0.7); #Monocytes 0.8 thou/uL (0.11-0.59); %Basophils 0.2 % (0.0-1.0); %Eosinophils 3.4 % (0.0-10.0); %Lymphocytes 15.8 % (21.0-51.0); %Monocytes 13.4 % (0.0-10.0); %Neutrophils 67.2 % (42.0-75.0); Hemoglobin 9.3 g/dL (12.0-16.0); Mean Corpuscular HGB CONC 30.8 g/dL (32.0-36.0); Mean Corpuscular Volume 97.4 fl (78.0-98.0); Mean Platelet Volume 10.8 fL (7.4-10.4); Platelet Count 193 10x3/uL (130-400); RBC Distribution Width 16.6 % (11.5-14.5); Red Blood Cell (RBC) Count 3.09 mill/uL (4.20-5.40)
[2022-04-20 09:59] LABS: ALT (SGPT) 14 U/L (8-55); AST (SGOT) 14 U/L (5-34); Albumin 3.5 g/dL (3.5-5.0); Alkaline Phosphatase 92 U/L (40-110); Anion Gap 13 mmol/L (10-20); BUN (Urea Nitrogen) 18 mg/dL (7.0-18.7); Bilirubin, Total 0.7 mg/dL (0.2-1.2); Calc. Creatinine Clearance 0 mL/min (70-130); Calcium 10.3 mg/dL (7.8-10.44); Carbon Dioxide 26 mmol/L (22-29); Chloride 108 mmol/L (98-107); Estimated GFR 53; Globulin 2.4 g/dL (2.4-3.5); Glucose 131 mg/dL (70-105); Potassium 4.5 mmol/L (3.5-5.1); Protein, Total 5.9 g/dL (6.0-8.3); Sodium 142 mmol/L (136-145)
[2022-04-20 10:27] LABS: Bilirubin Negative (Negative); Blood, Urine Negative (Negative); Clarity Clear (Clear); Glucose, Urine (Dipstick) Normal (Negative); Ketone, Urine Negative (Negative); Leukocyte Negative Leu/uL (Negative); Nitrite Negative (Negative); Protein, Urine (Dipstick) Negative (Neg-Trace); Specific Gravity, Urine 1.007 (1.002-1.036); Urobilinogen Normal mg/dL (Less than 2); pH, Urine 6.5 (5.0-9.0)
[2022-04-20 11:04] LABS: SARS-CoV-2 NAA Rapid Test Not Detected (NotDetected)
[2022-04-20] MEDS ORDERED: Cefepime 2 GM VIAL ONE (14:41)
[2022-04-20] MEDS ORDERED: Vancomycin 1 GM/200 ML (FROZEN) BAG ONE (15:18)
== END 2022-04-20 17:10 | disposition left against medical advice (07) ==
LOC: ERS 08:32
DX: J18.9 Pneumonia, unspecified organism (principal); K21.9 Gastro-esophageal reflux disease without esophagitis; Z20.822 Contact with and (suspected) exposure to COVID-19
CPT/HCPCS: 71046; 71275; 80053; 81003; 83880; 84484; 85025; 85379; 93005; J3370; U0002; 36415; 96374; 96375; J0692; Q9967

== ENCOUNTER 2022-05-29 15:27 | Outpatient (CLI) | payer OTHER | END 2022-05-29 15:28 | disposition home or self-care (01) | LOC: BICRAD 15:27 | PROVIDERS: ATTEND Family Medicine | DX: Z87.01 Personal history of pneumonia (recurrent) (principal) | CPT/HCPCS: 71046 ==

== ENCOUNTER 2022-09-22 12:20 | Outpatient (CLI) | payer OTHER | END 2022-09-22 12:21 | disposition home or self-care (01) | LOC: SCSMRI 12:20 | PROVIDERS: ATTEND Internal Medicine Medical Oncology | DX: C79.51 Secondary malignant neoplasm of bone (principal); C90.00 Multiple myeloma not having achieved remission; M47.817 Spondylosis without myelopathy or radiculopathy, lumbosacral region; M48.07 Spinal stenosis, lumbosacral region; M54.50 Low back pain, unspecified | CPT/HCPCS: 72158; 82565 ==